=== PATIENT | female | born 1995 ===

== ENCOUNTER 2017-08-14 22:07 | Emergency (ER) | payer SELFPAY ==
[~2017-08-14] VITALS: Ht 170.2 cm; Wt 52.2 kg
--- NOTE | ~2017-08-14 | CR150 ---
[facility] A Service of [facility] & [facility] RADIOLOGY TEXT RESULTS PATIENT: LIA YOUNG LOCATION: [facility] : [birth year] UNIT #: [id number] AGE: [address]: Andriy Melgar MD SEX: F ORDER DR: [id number] [facility] [address] [place], [place] [address] [id number] MR#: [id number] Acc #: [id number] NAME: LIA YOUNG : 1995 SEX: F STUDY DATE/TIME: 08/14/2017 23:52 UNIT: [facility] ROOM: STUDY DESCRIPTION: CR Hip Min 2 Views Lt Attending Physician: Andriy Melgar M.D. Ordering Physician: Andriy Melgar M.D. MEDICAL IMAGING REPORT This report is preliminary unless electronic signature is present EXAM Left hip series 08/14/2017 HISTORY 21-year-old female in the ED complaining of left hip pain after a fall 2 days ago. TECHNIQUE Two-view left hip series. FINDINGS The examination is negative. No fracture, dislocation, arthropathy or other osseous abnormality. IMPRESSION Negative left hip. Dictated by... Con Fitzpatrick M.D. THIS IS AN ELECTRONICALLY VERIFIED REPORT Con Fitzpatrick M.D. at 08/16/2017 2:44 AM APOLINAR/joi TD: 08/15/2017 12:59 JOB #: [id number] MEDICAL IMAGING REPORT Page 1 of 1 COPY
== END 2017-08-15 00:12 | disposition home or self-care (01) ==
LOC: CED 22:07
DX: S70.02XA Contusion of left hip, initial encounter (principal); S80.02XA Contusion of left knee, initial encounter; W01.0XXA Fall on same level from slipping, tripping and stumbling without subsequent striking against object, initial encounter; Y92.69 Other specified industrial and construction area as the place of occurrence of the external cause
CPT/HCPCS: 73502; 84703; 99283